=== PATIENT | female | born 1935 | race African-American/Black ===

== ENCOUNTER → 2016-11-25 | Outpatient (CLI) | payer OTHER, BC | LOC: BRMIMAGING 14:35 | PROVIDERS: ATTEND Internal Medicine | DX: M25.511 Pain in right shoulder (principal); M19.012 Primary osteoarthritis, left shoulder; M19.042 Primary osteoarthritis, left hand; M19.041 Primary osteoarthritis, right hand; M19.071 Primary osteoarthritis, right ankle and foot; M19.072 Primary osteoarthritis, left ankle and foot; M16.0 Bilateral primary osteoarthritis of hip | CPT/HCPCS: 73030-PO; 73130-PO; 73521-PO; 73630-PO ==